=== PATIENT | male | born 1985 | race Hispanic/Latino ===

== ENCOUNTER 2017-07-20 19:43 | Emergency (ER) | payer SELFPAY ==
[2017-07-20] MEDS ORDERED: Bacitracin Zinc 1 Packet ONE (20:59)
== END 2017-07-20 21:33 | disposition home or self-care (01) ==
LOC: SCSER 19:43
DX: S01.511A Laceration without foreign body of lip, initial encounter (principal); S00.83XA Contusion of other part of head, initial encounter; W20.8XXA Other cause of strike by thrown, projected or falling object, initial encounter
CPT/HCPCS: 99283